=== PATIENT | male | born 1945 ===

== ENCOUNTER 2017-03-24 13:40 | Emergency (ER) | payer MEDICARE, MEDICAID ==
[2017-03-24 13:41] VITALS: BMI 26.6
[2017-03-24 16:05] LABS: BASO # 0.1 K/uL (0.0-0.2); BASO % 1.2 % (0.0-2.0); EOS # 0.6 K/uL (0.0-0.7); EOS % 9.6 % (0.0-4.0); HEMATOCRIT 37.5 % (35.0-51.0); LYMPH # 1.9 K/uL (1.0-4.3); LYMPH % 33.5 % (20.0-40.0); MEAN CELL VOLUME 93.1 fL (80.0-94.0); MEAN CORPUSCULAR HGB CONC 33.3 g/dL (33.0-37.0); MEAN PLATELET VOLUME 7.9 fL (7.2-11.7); MONO # 0.6 K/uL (0.0-0.8); MONO % 9.7 % (0.0-10.0); RED CELL DISTRIBUTION WIDTH 13.6 % (11.5-14.5); WHITE BLOOD COUNT 5.8 K/uL (4.8-10.8)
[2017-03-24 16:13] LABS: CHLORIDE 99 mmol/L (98-107); POTASSIUM 3.6 mmol/L (3.6-5.2); SODIUM 138 mmol/L (132-148)
--- NOTE | 2017-03-24 16:13 | C.PDOC ---
History Of Present Illness A 71 year old male presents to the emergency room with complaints of pain along the bilateral lower ribs from the mid-axillary line anteriorly for 3-4 days. Patient denies chest pain, shortness of breath, nausea, vomiting, diarrhea, any urinary symptoms, or any other complaints. Patient reports patient has been experiencing pain intermittently for 5 months, with the pain usually lasting a day or 2. Patient notes that pain is worst with movement. Patient states that the pain has lasted longer this time and he has not taken anything for the pain. Patient has not told his PMD that he was having this pain. Patient was recently admitted to the hospital for chest pain and his workup for ACS was reported as negative. However, patient had a nuclear stress test on 02/26/17 that showed a fixed defect, but no reversible ischemia. Time Seen by Provider: 03/24/17 14:40 Chief Complaint (Nursing): Chest Pain History Per: Patient History/Exam Limitations: no limitations Onset/Duration Of Symptoms: Days (3-4), Intermittent Episodes, Other ( Experiencing the pain for over 5 months) Current Symptoms Are (Timing): Still Present Severity: Moderate Quality: "Pain" Associated Symptoms: denies: Nausea, Dyspnea, Diaphoresis, Syncope Modifying Factors: None Exacerbating Factors: Movement Alleviating Factors: None Past Medical History Reviewed: Historical Data, Nursing Documentation, Vital Signs Vital Signs: Last Vital Signs Temp 97.6 F 03/24/17 16:20 Pulse 62 03/24/17 18:12 Resp 17 03/24/17 18:12 BP 132/75 03/24/17 18:12 Pulse Ox 97 03/28/17 17:20 - Medical History PMH: Anxiety, Arthritis, Back Problems, COPD, HTN, Hypercholesterolemia, Migraine, Sleep Apnea Surgical History: Appendectomy, Hernia Repair - [facility] Procedures ANESTH INJEC PERIPH NERV (08/18/14) ANESTH INJECT SYMP NERVE (12/13/14) INJECT STEROID (12/13/14) INJECT/INFUSE NEC (04/23/15) OTH & OPEN BILAT REP DIRECT INGUINAL HERNIA W GRFT OR PROSTH (11/07/13) PERIPH NERVE DESTRUCTION (05/30/15) PERIPH NERVE INJECT NEC (08/18/14) SYMPATH NERVE INJECT NEC (12/13/14) Family History: States: Unknown Family Hx - Social History Hx Tobacco Use: No Hx Alcohol Use: No (2-3 beers/day) Hx Substance Use: No Review Of Systems Constitutional: Negative for: Fever, Chills Cardiovascular: Negative for: Chest Pain Respiratory: Negative for: Shortness of Breath Gastrointestinal: Negative for: Nausea, Vomiting, Diarrhea Genitourinary: Negative for: Dysuria, Frequency, Incontinence, Hematuria Musculoskeletal: Positive for: Other (pain along the bilateral lower ribs from the mid-axillary line anteriorly) Neurological: Negative for: Headache, Dizziness Physical Exam - Physical Exam Appears: Well, Non-toxic Skin: Normal Color, Warm, Dry Head: Atraumatic, Normacephalic Oral Mucosa: Moist Neck: Supple Chest: Symmetrical, No Deformity, No Tenderness Cardiovascular: Rhythm Regular Respiratory: Normal Breath Sounds, No Rales, No Rhonchi, No Wheezing Gastrointestinal/Abdominal: Soft, No Tenderness, No Guarding, No Rebound Back: No CVA Tenderness, No Vertebral Tenderness, No Paraspinal Tenderness, No Other (No LS or T spine tenderness) Extremity: Normal ROM, No Tenderness, No Pedal Edema Neurological/Psych: Oriented x3, Normal Speech, Normal Cognition Gait: Steady ED Course And Treatment - Laboratory Results Result Diagrams: 03/24/17 16:00 03/24/17 16:00 ECG: Interpreted By De ECG Rhythm: L BBB ECG Interpretation: No Acute Changes Rate From EC O2 Sat by Pulse Oximetry: 97 - CT Scan/US Abdomen/Pelvis CT Other Rad Studies (CT/US): Read By Radiologist, Radiology Report Reviewed CT/US Interpretation: PROCEDURE: CT Abdomen and Pelvis without Oral or IV contrast. HISTORY: bilateral flank pain. COMPARISON: None available. TECHNIQUE: Contiguous axial images of the abdomen and pelvis. No oral or IV contrast administered. Coronal and Sagittal reformats generated and reviewed. Radiation dose: Total exam DLP = 643.86 mGy-cm. This CT exam was performed using one or more of the following dose reduction techniques: Automated exposure control, adjustment of the mA and/or kV according to patient size, and/ or use of iterative reconstruction technique. FINDINGS: There is limited evaluation of the solid organs without the administration of IV contrast. LOWER THORAX: Bibasilar atelectasis. No visible pleural effusion or pneumothorax. LIVER: Unremarkable unenhanced appearance. GALLBLADDER AND BILE DUCTS: Unremarkable unenhanced appearance. PANCREAS: Unremarkable unenhanced appearance. SPLEEN: Unremarkable unenhanced appearance. ADRENALS: Unremarkable unenhanced appearance. KIDNEYS AND URETERS: No hydronephrosis or obstructing renal calculus. BLADDER: The urinary bladder appears unremarkable. REPRODUCTIVE: The prostate gland measures approximately 3.7 x 4.7 cm. APPENDIX: No secondary signs of acute appendicitis. BOWEL: The stomach is nondistended. Lack of oral contrast limits evaluation for bowel pathology. The bowel loops appear within normal limits of caliber without evidence of intestinal obstruction. Moderate to severe constipation. PERITONEUM : No significant free fluid. No definite free air. LYMPH NODES: Bilateral sub cm prominent inguinal lymph nodes bilaterally, nonspecific. VASCULATURE: No aortic aneurysm. BONES: Multilevel degenerative changes. 8 mm anterolisthesis of L5 on S1. Bilateral L5 spondylolysis. OTHER FINDINGS: None. IMPRESSION: Moderate to severe constipation. Additional incidental findings as above. Progress Note: Toradol ordered for pain. Medical Decision Making Medical Decision Making: Labs and CT unremarkable, No indication of cardiac cause, abd soft and abd CT neg Pt feeling better post toradol, Plan dc home nsaid, pcp f/u Disposition Counseled Patient/Family Regarding: Diagnosis, Need For Followup - Disposition Disposition: HOME/ ROUTINE Disposition Time: 18:02 Condition: GOOD Additional Instructions: Follow up with PMD Prescriptions: Naproxen [Naprosyn] 1 tab PO BID PRN #25 tab PRN Reason: Pain Polyethylene Glycol 3350 [Miralax] 17 gm PO DAILY PRN #500 g PRN Reason: Constipation Instructions: Constipation (ED), Back Pain (ED) - Clinical Impression Clinical Impression: Abdominal pain, Constipation - Scribe Statement The provider has reviewed the documentation as recorded by the Cy Gautam All medical record entries made by the Cy were at my direction and personally dictated by me. I have reviewed the chart and agree that the record accurately reflects my personal performance of the history, physical exam, medical decision making, and the department course for this patient. I have also personally directed, reviewed, and agree with the discharge instructions and disposition.
[2017-03-24 16:15] LABS: ALB/GLOB RATIO 1.5 (1.0-2.1); ALKALINE PHOSPHATASE 82 U/L (38-126); AST/SGOT 23 U/L (17-59); BILIRUBIN,TOTAL 0.5 mg/dL (0.2-1.3); CARBON DIOXIDE 27 mmol/L (22-30); GFR AFRICAN-AMERICAN > 60; TOTAL PROTEIN 7.1 g/dL (6.3-8.3)
[2017-03-24 16:16] LABS: ALT/SGPT 29 U/L (21-72); BLOOD UREA NITROGEN 20 mg/dL (9-20); CALCIUM 8.6 mg/dl (8.6-10.4); GLUCOSE,RANDOM 87 mg/dL (75-110)
[2017-03-24 16:18] LABS: URINE BILIRUBIN NEGATIVE (NEGATIVE); URINE BLOOD NEGATIVE (NEGATIVE); URINE COLOR Yellow (YELLOW); URINE GLUCOSE (UA) NORMAL (Normal); URINE KETONE NEGATIVE (NEGATIVE); URINE LEUKOCYTE ESTERASE NEG Leu/uL (Negative); URINE PROTEIN NEGATIVE (NEGATIVE); URINE UROBILINOGEN NORMAL mg/dL (0.2-1.0)
[2017-03-24 16:21] VITALS: TEMP 97.6
--- NOTE | 2017-03-24 17:08 | CT ---
PROCEDURE: CT Abdomen and Pelvis without Oral or IV contrast. HISTORY: bilateral flank pain COMPARISON: None available TECHNIQUE: Contiguous axial images of the abdomen and pelvis. No oral or IV contrast administered. Coronal and Sagittal reformats generated and reviewed. Radiation dose: Total exam DLP = 643.86 mGy-cm. This CT exam was performed using one or more of the following dose reduction techniques: Automated exposure control, adjustment of the mA and/or kV according to patient size, and/or use of iterative reconstruction technique. FINDINGS: There is limited evaluation of the solid organs without the administration of IV contrast. LOWER THORAX: Bibasilar atelectasis. No visible pleural effusion or pneumothorax. LIVER: Unremarkable unenhanced appearance. GALLBLADDER AND BILE DUCTS: Unremarkable unenhanced appearance. PANCREAS: Unremarkable unenhanced appearance. SPLEEN: Unremarkable unenhanced appearance. ADRENALS: Unremarkable unenhanced appearance. KIDNEYS AND URETERS: No hydronephrosis or obstructing renal calculus. BLADDER: The urinary bladder appears unremarkable. REPRODUCTIVE: The prostate gland measures approximately 3.7 x 4.7 cm. APPENDIX: No secondary signs of acute appendicitis. BOWEL: The stomach is nondistended. Lack of oral contrast limits evaluation for bowel pathology. The bowel loops appear within normal limits of caliber without evidence of intestinal obstruction. Moderate to severe constipation. PERITONEUM: No significant free fluid. No definite free air. LYMPH NODES: Bilateral sub cm prominent inguinal lymph nodes bilaterally, nonspecific. VASCULATURE: No aortic aneurysm. BONES: Multilevel degenerative changes. 8 mm anterolisthesis of L5 on S1. Bilateral L5 spondylolysis. OTHER FINDINGS: None. IMPRESSION: Moderate to severe constipation. Additional incidental findings as above.
[2017-03-24 18:13] VITALS: BP 132/75; PULSE 62; RESP 17
[2017-03-24 18:44] VITALS: O2SAT 97
--- NOTE | 2017-03-25 11:02 | CARD ---
APPROVED REPORT EKG Measurement Heart [id number] <Conclusion> Normal sinus rhythm Left bundle branch block Abnormal ECG
== END 2017-03-24 18:13 | disposition home or self-care (01) ==
LOC: C.ER 13:40
DX: K59.00 Constipation, unspecified (principal); R10.9 Unspecified abdominal pain
CPT/HCPCS: 74176; 80053; 81001; 83690; 85025; 93005; 96374; 99284; J1885

== ENCOUNTER 2017-11-14 11:22 | Emergency (ER) | payer MEDICARE, MEDICAID ==
[2017-11-14 11:23] VITALS: BMI 28.1
--- NOTE | 2017-11-14 12:45 | C.PDOC ---
History Of Present Illness "MY PAIN DOCTOR TOLD ME TO COME HERE". NEW ONSET SWELLING R ANKLE AND TOP OF R HAND SINCE DC FROM [facility] 10/12. S/P EVAL FOR CVA, HO CHRONIC LEE AND NECK PAIN X 1 YEAR. PS SAW PAIN MGMT DR JOSEPH FOR CHRONIC BACK PAIN. WAS ADVISED TO COME TO ER FOR "POSSIBLE CLOT". NO NEW DEFICIT SINCE DC. 10/11/17 MRI negative for acute changes, Seen by Neurologist Dr Evans and cleared. Pt to go home on gabapentin and fiorocet for headaches. EXAM NAD NONTOXIC NECK SUPPLE NEURO NO FOCAL DEF EXT R LEG +MILD SWELLING TOP FOOT AND CALF. NONTEND, NO PALP MASS/CORD. NO EDEMA REMAINDER NEG Time Seen by Provider: 11/14/17 11:44 Chief Complaint (Nursing): Back Pain History Per: Patient History/Exam Limitations: no limitations Onset/Duration Of Symptoms: Days Current Symptoms Are (Timing): Still Present Severity: Moderate Reports Recently: Treated By A Physician Past Medical History Reviewed: Historical Data, Nursing Documentation, Vital Signs Vital Signs: Last Vital Signs Temp 98.1 F 11/14/17 15:54 Pulse 73 11/14/17 15:54 Resp 18 11/14/17 15:54 BP 170/95 H 11/14/17 15:54 Pulse Ox 99 11/14/17 15:54 - Medical History PMH: Anxiety, Arthritis (OA B knees, s/p recent injections B knees (R knee last week)), Back Problems, COPD, HTN, Hypercholesterolemia, Migraine, Rheumatoid Arthritis, Sleep Apnea Denies: Asthma, CHF, HIV, Chronic Kidney Disease, Sexually Transmitted Disease Surgical History: Appendectomy, Hernia Repair Denies: CABG, Carotid Endarterectomy, Cholecystectomy, Coronary Stent, Endoscopy, Pacemaker, Tonsillectomy - [facility] Procedures ANESTH INJEC PERIPH NERV (08/18/14) ANESTH INJECT SYMP NERVE (12/13/14) INJECT STEROID (12/13/14) INJECT/INFUSE NEC (04/23/15) OTH & OPEN BILAT REP DIRECT INGUINAL HERNIA W GRFT OR PROSTH (11/07/13) PERIPH NERVE DESTRUCTION (05/30/15) PERIPH NERVE INJECT NEC (08/18/14) SYMPATH NERVE INJECT NEC (12/13/14) Family History: States: No Known Family Hx - Social History Hx Tobacco Use: No Hx Alcohol Use: No Hx Substance Use: No - Immunization History Hx Tetanus Toxoid Vaccination: No Hx Influenza Vaccination: No Hx Pneumococcal Vaccination: No Review Of Systems Except As Marked, All Systems Reviewed And Found Negative. Constitutional: Negative for: Fever Cardiovascular: Negative for: Chest Pain Gastrointestinal: Negative for: Abdominal Pain Musculoskeletal: Positive for: Back Pain, Hand Pain (swelling on top of right hand), Other (swelling in right ankle) Neurological: Negative for: Weakness, Numbness Physical Exam - Physical Exam Appears: Non-toxic, No Acute Distress Skin: Normal Color, Warm, No Rash Head: Atraumatic, Normacephalic Neck: Normal, Normal ROM, No Midline Cervical Tenderness, Supple Respiratory: Normal Breath Sounds Extremity: No Tenderness, No Pedal Edema, Swelling ( swelling in right leg and mild swelling in top foot and calf), Other (no palpable mass/cord) Neurological/Psych: Oriented x3, Normal Speech, Normal Motor, Normal Sensation, Other (no focal deficits) Gait: Steady ED Course And Treatment O2 Sat by Pulse Oximetry: 98 (RA) Pulse Ox Interpretation: Normal Progress - Re-Evaluation Re-evaluation Note: 11/14/17 15:31 EXAM UNCH. CAROTID AND VENOUS DUPLER NEG. ADVISED FU PMD - Data Reviewed Data Reviewed: Diagnostic imaging, Old records Medical Decision Making Medical Decision Making: Plan: --Carotid Duplex Scan LTD --Duplex Scan Low Ext RT. Disposition Counseled Patient/Family Regarding: Studies Performed, Diagnosis, Need For Followup - Disposition Referrals: YOUR,PMD [Other] Disposition: HOME/ ROUTINE Disposition Time: 15:31 Condition: GOOD Additional Instructions: YOUR CAROTID U.S. AND YOUR R LEG VENOUS DUPLEX TESTS ARE NORMAL. FOLLOW UP WITH YOUR PMD FOR FURTHER EVALUATION Instructions: Swollen Ankle Joint (ED) Forms: [employer] ([place]) - Clinical Impression Clinical Impression: Leg swelling - Scribe Statement The provider has reviewed the documentation as recorded by the Cy Coleman Provider Attestation: All medical record entries made by the Cy were at my direction and personally dictated by me. I have reviewed the chart and agree that the record accurately reflects my personal performance of the history, physical exam, medical decision making, and the department course for this patient. I have also personally directed, reviewed, and agree with the discharge instructions and disposition.
[2017-11-14 15:55] VITALS: BP 170/95; PULSE 73; RESP 18; TEMP 98.1
[2017-11-14 18:23] VITALS: O2SAT 98
--- NOTE | 2017-11-17 11:06 | VASCLAB ---
PROCEDURE: Right Lower Extremity Venous Duplex Exam. HISTORY: SWELLING PRIORS: None. TECHNIQUE: Right common femoral, femoral, popliteal and posterior tibial, peroneal and great saphenous veins were evaluated. Flow was assessed with color Doppler, compressibility, assessment of phasic flow and augmentation response. Report prepared by MP Walsh, RVT FINDINGS: RIGHT: 1. Common Femoral Vein: 1.1. Compressibility - Fully compressible: Thrombus - None: Flow - Phasic: Augmentation -Normal: Reflux - None. 2. Femoral Vein: 2.1. Compressibility - Fully compressible: Thrombus - None: Flow - Phasic: Augmentation -Normal: Reflux - None. 3. Popliteal Vein: 3.1. Compressibility - Fully compressible: Thrombus - None: Flow - Phasic: Augmentation -Normal: Reflux - None. 4. Posterior Tibial Vein: 4.1. Compressibility - Fully compressible: Thrombus - None: Flow - Phasic: Augmentation -Normal: Reflux - None. 5. Peroneal Vein: 5.1. Compressibility - Fully compressible: Thrombus - None: Flow - Phasic: Augmentation -Normal: Reflux - None. 6. Great Saphenous Vein: 6.1. Compressibility - Fully compressible: Thrombus -None: Flow - Phasic: Augmentation - Normal: Reflux - None. OTHER FINDINGS: IMPRESSION: No evidence of deep or superficial vein thrombosis of the right lower extremity with excellent venous flow. Normal valve function noted of the right side. Normal venous flow noted in the left common femoral vein.
--- NOTE | 2017-11-17 11:13 | VASCLAB ---
PROCEDURE: HISTORY: POSTERIOR LEE, ABN CT COMPARISON: None available. TECHNIQUE: Grayscale and duplex Doppler evaluation of the cervical carotid and vertebral arteries were performed. The common carotid, carotid bifurcations and cervical Internal Carotid Artery (ICA) and proximal External Carotid Artery (ECA) were evaluated. The vertebral arteries were evaluated for gross patency and flow direction. Report prepared by Chris Bradshaw, BS, RVT FINDINGS: RIGHT CAROTID ARTERIES: 1. Common Carotid Artery: No significant focal plaque formation of the right common carotid artery. Maximum Peak Systolic velocity: 96 cm/sec: End-diastolic velocity 22 cm/sec. 2. Carotid Bifurcation: plaque formation. Maximum Peak Systolic velocity: 92 cm/sec: End-diastolic velocity 22 cm/sec. 3. Internal Carotid Artery: Plaque description: 3.1. Proximal Segment: Peak systolic velocity 116 cm/sec: End-diastolic velocity 22 cm/sec - % stenosis 0-15% 3.2. Middle Segment: Peak systolic velocity 60 cm/sec: End-diastolic velocity 19 cm/sec - % stenosis 0-15% 3.3. Distal Segment: Peak systolic velocity 94 cm/sec: End-diastolic velocity 35 cm/sec - % stenosis 0-15% 4. External Carotid Artery: No significant focal plaque formation. Peak systolic velocity 62 cm/sec 5. ICA/CCA Ratio: 1.2 LEFT CAROTID ARTERIES: 1. Common Carotid Artery: No significant focal plaque formation of the left common carotid artery. Maximum Peak Systolic velocity: 79 cm/sec: End-diastolic velocity 18 cm/sec. 2. Carotid Bifurcation: Calcific plaque formation. Maximum Peak Systolic velocity: 73 cm/sec: End-diastolic velocity 15 cm/sec. 3. Internal Carotid Artery: Plaque description: 3.1. Proximal Segment: Peak systolic velocity 94 cm/sec: End-diastolic velocity 22 cm/sec - % stenosis 0-15% 3.2. Middle Segment: Peak systolic velocity 93 cm/sec: End-diastolic velocity 29 cm/sec - % stenosis 0-15% 3.3. Distal Segment: Peak systolic velocity 98 cm/sec: End-diastolic velocity 32 cm/sec - % stenosis 0-15% 4. External Carotid Artery: No significant focal plaque formation. Peak systolic velocity 66 cm/sec 5. ICA/CCA Ratio: 1.2 VERTEBRAL ARTERIES: 1. Right Vertebral Artery: The right vertebral artery flow direction is antegrade. 2. Left Vertebral Artery: The left vertebral artery flow direction is antegrade. OTHER FINDINGS: 1. Right Brachial Blood pressure: 158 mmHg. 2. Left Brachial Blood pressure: 160 mmHg. IMPRESSION: RIGHT: Duplex scan does not suggest hemodynamically significant stenosis of the right extracranial carotid arteries. LEFT: Duplex scan does not suggest hemodynamically significant stenosis of the left extracranial carotid arteries.
== END 2017-11-14 15:55 | disposition home or self-care (01) ==
LOC: C.ER 11:22
DX: M79.89 Other specified soft tissue disorders (principal); I10 Essential (primary) hypertension; M17.0 Bilateral primary osteoarthritis of knee